=== PATIENT | female | born 1965 | race Caucasian/White ===

== ENCOUNTER → 2018-11-22 15:20 | Outpatient (CLI) | payer OTHER, SELFPAY | PROVIDERS: Visit Provider Physician Assistant | DX: N39.0 Urinary tract infection, site not specified (principal); R31.9 Hematuria, unspecified | CPT/HCPCS: 87077; 87086; 87186 ==

== ENCOUNTER → 2019-07-28 07:43 | Outpatient (CLI) | payer OTHER, SELFPAY ==
--- NOTE | 2019-07-28 | DI.MG.S_ITS ---
BILATERAL DIGITAL SCREENING MAMMOGRAM 3D/2D WITH CAD: 07/28/2019 CLINICAL: Routine screening. Family history of breast cancer. Comparison is made to exams dated: 07/23/2018 mammogram, 05/29/2017 mammogram, and 05/18/2016 mammogram - [facility]. There are scattered fibroglandular elements in both breasts. Current study was also evaluated with a Computer Aided Detection (CAD) system. No significant masses, calcifications, or other findings are seen in either breast. There has been no significant interval change. IMPRESSION: NEGATIVE There is no mammographic evidence of malignancy. A 1 year screening mammogram is recommended. This exam was interpreted at Station ID: [id number]. NOTE: For mammograms, a report in lay terms will be sent to the patient. Approximately 15% of breast malignancies will not be visualized mammographically. In the management of a palpable breast mass, a negative mammogram must not discourage biopsy of a clinically suspicious lesion. Electronically Signed By: Martin huff/leila:07/28/2019 09:05:30 letter sent: Normal Exam ACR BI-RADS Category 1: Negative 3341F
== END ==
PROVIDERS: PCP Nurse Practitioner Family; Referring Provider Nurse Practitioner Family; Visit Provider Nurse Practitioner Family
DX: Z12.31 Encounter for screening mammogram for malignant neoplasm of breast (principal); Z80.3 Family history of malignant neoplasm of breast
CPT/HCPCS: 77063; 77067

== ENCOUNTER → 2019-09-13 08:31 | Outpatient (CLI) | payer OTHER, SELFPAY ==
--- NOTE | 2019-09-13 08:34 | DI.RAD.S_ITS ---
PROCEDURE: XR CHEST 2V INDICATIONS: Cough TECHNIQUE: 2 views of the chest were acquired. COMPARISON: None. FINDINGS: Surgical changes and devices: None. Lungs and pleura: An incomplete inspiratory result is noted, causing a crowded appearance to the lung markings. No focal infiltrates are seen. No pneumothorax or significant pleural effusions are seen. Mediastinum: The cardiac contours are within normal limits. The aorta demonstrates calcification and tortuosity. Bones and chest wall: Age-appropriate bony degenerative changes are seen. No suspicious bony abnormalities. Soft tissues appear unremarkable. IMPRESSION: No acute cardiopulmonary process is seen. No focal infiltrates. Dictated by: Kirit Garrett M.D. on 09/13/2019 at 8:04 Approved by: Kirit Garrett M.D. on 09/13/2019 at 8:05
== END ==
PROVIDERS: PCP Nurse Practitioner Family; Referring Provider Registered Nurse; Visit Provider Registered Nurse
DX: R05 Cough (principal)
CPT/HCPCS: 71046

== ENCOUNTER → 2020-08-10 10:04 | Outpatient (CLI) | payer OTHER, SELFPAY ==
--- NOTE | 2020-08-10 10:05 | DI.MG.S_ITS ---
BILATERAL DIGITAL SCREENING MAMMOGRAM 3D/2D WITH CAD: 08/10/2020 CLINICAL: Routine screening. Family history of breast cancer. Comparison is made to exams dated: 07/28/2019 mammogram - [facility], 07/23/2018 mammogram, and 05/29/2017 mammogram - [facility]. There are scattered fibroglandular elements in both breasts. Current study was also evaluated with a Computer Aided Detection (CAD) system. No significant masses, calcifications, or other findings are seen in either breast. There has been no significant interval change. IMPRESSION: NEGATIVE There is no mammographic evidence of malignancy. A 1 year screening mammogram is recommended. This exam was interpreted at Station ID: [id number]. NOTE: For mammograms, a report in lay terms will be sent to the patient. Approximately 15% of breast malignancies will not be visualized mammographically. In the management of a palpable breast mass, a negative mammogram must not discourage biopsy of a clinically suspicious lesion. Electronically Signed By: Christofer perez/leila:08/10/2020 10:21:53 letter sent: Normal Exam ACR BI-RADS Category 1: Negative 3341F
== END ==
PROVIDERS: PCP Nurse Practitioner Family; Referring Provider Nurse Practitioner Family; Visit Provider Nurse Practitioner Family
DX: Z12.31 Encounter for screening mammogram for malignant neoplasm of breast (principal); Z80.3 Family history of malignant neoplasm of breast
CPT/HCPCS: 77063; 77067

== ENCOUNTER → 2020-08-17 07:27 | Outpatient (CLI) | payer OTHER, SELFPAY ==
[2020-08-17 08:55] LABS: Hematocrit 38.6 % (36-46); Hemoglobin 13.1 g/dL (12.0-16.0); Mean Corpuscular HGB Conc 33.8 % (30-36); Mean Corpuscular Hemoglobin 31.3 PG (26-34); Mean Corpuscular Volume 92.5 fL (80-100); Platelet Count 242 X10^3/uL (150-400); Red Blood Cell Count 4.18 X10^6/uL (4.0-5.2); Red Cell Distribution Width 11.6 % (11.6-14.8); White Blood Cell Count 6.2 X10^3/uL (4.5-11.0)
[2020-08-17 08:55] LABS: Appearance Urine UA SL CLOUDY; Bilirubin Urine UA NEGATIVE (NEGATIVE); Color Urine UA YELLOW; Glucose Urine UA NEGATIVE (Negative); Ketones Urine UA NEGATIVE (NEGATIVE); Leukocyte Esterase Urine UA TRACE (NEGATIVE); Nitrite Urine UA NEGATIVE (Negative); Occult Blood Urine UA 1+ (Negative); Protein Urine UA NEGATIVE (Negative); Specific Gravity Urine UA 1.015 (1.000-1.035); Urobilinogen Urine UA 0.2 E.U./dL (0.2)
[2020-08-17 09:23] LABS: Alanine Aminotransferase 39 IU/L (<35); Albumin 4.2 g/dL (3.5-5.0); Albumin Globulin Ratio 1.4 (1.0-2.8); Alkaline Phosphatase 92 U/L (38-126); Aspartate Aminotransferase 39 IU/L (14-36); BUN Creatinine Ratio 23.9 (6-22); Bilirubin Total 0.4 mg/dL (0.2-1.3); Blood Urea Nitrogen 16 mg/dL (7-17); Calcium 9.7 mg/dL (8.4-10.2); Carbon Dioxide 27 mmol/L (22-32); Chloride 105 mmol/L (98-107); Cholesterol 253 mg/dL (140-199); Estimated Glomerular Filt Rate > 60.0 mL/min (>60); Globulin 3.1 g/dL (1.7-4.1); Glucose 94 mg/dL (70-100); HDL Cholesterol 68 mg/dL (40-60); HEMOLYSIS < 15 (0-50); LDL Cholesterol Calculated 149 mg/dL (<100); Potassium 3.8 mmol/L (3.4-5.1); Sodium 139 mmol/L (137-145); Total Protein 7.3 g/dL (6.3-8.2); Triglycerides 178 mg/dL (35-150)
[2020-08-17 09:31] LABS: Bacteria Urine Many (>30); RBC Urine 0-1/HPF (0-5/HPF); Squamous Epithelial Cell Urine 1-5 /HPF (0-5/HPF); WBC Urine 5-10/HPF (0-5/HPF)
[2020-08-17 10:01] LABS: TSH w/ Reflex to FT4 3.74 uIU/mL (0.47-4.68)
[2020-08-17 10:27] LABS: Folate > 20.0 ng/mL (2.76-20.0); Vitamin B12 780 pg/mL (239-931)
== END ==
PROVIDERS: PCP Nurse Practitioner Family; Referring Provider Nurse Practitioner Family; Visit Provider Nurse Practitioner Family
DX: J45.20 Mild intermittent asthma, uncomplicated (principal); Z00.00 Encounter for general adult medical examination without abnormal findings; R25.1 Tremor, unspecified; Z13.6 Encounter for screening for cardiovascular disorders
CPT/HCPCS: 36415; 80053; 80061; 81001; 82607; 82746; 84443; 85027

== ENCOUNTER → 2020-09-22 14:16 | Outpatient (CLI) | payer OTHER, SELFPAY ==
[2020-09-22] MEDS: COVID-19 VACC #1, MRNA(MOD) 100 MCG/0.5 ML VIAL IM (14:23)
== END ==
PROVIDERS: PCP Nurse Practitioner Family; Visit Provider Internal Medicine
DX: Z23 Encounter for immunization (principal)
CPT/HCPCS: 0011A; 91301

== ENCOUNTER → 2021-01-23 11:50 | Outpatient (CLI) | payer OTHER, SELFPAY ==
--- NOTE | 2021-01-23 11:52 | DI.RAD.S_ITS ---
PROCEDURE: XR TOE LT MIN 2V INDICATIONS: dropped table on toe, pain TECHNIQUE: 3 views of the left toe(s) acquired. COMPARISON: None. FINDINGS: Bones: No fractures or dislocations. No suspicious bony lesions. Age-appropriate bony degenerative changes are seen. Toe alignment abnormalities are seen. Soft tissues: No suspicious soft tissue densities. IMPRESSION: No displaced fractures can be seen on these plain films. Dictated by: Kirit Garrett M.D. on 01/23/2021 at 11:53 Approved by: Kirit Garrett M.D. on 01/23/2021 at 11:54
== END ==
PROVIDERS: PCP Nurse Practitioner Family; Referring Provider Nurse Practitioner Family; Visit Provider Nurse Practitioner Family
DX: S99.922A Unspecified injury of left foot, initial encounter (principal); W20.8XXA Other cause of strike by thrown, projected or falling object, initial encounter
CPT/HCPCS: 73660

== ENCOUNTER → 2021-02-16 15:35 | Outpatient (CLI) | payer OTHER, SELFPAY ==
[2021-02-16 16:05] LABS: COVID19 -Nasal RAPID Negative (Negative)
== END ==
PROVIDERS: PCP Nurse Practitioner Family; Visit Provider Physician Assistant
DX: Z20.822 Contact with and (suspected) exposure to COVID-19 (principal)
CPT/HCPCS: 87635

== ENCOUNTER → 2021-03-03 07:39 | Outpatient (CLI) | payer OTHER, SELFPAY ==
--- NOTE | 2021-03-03 07:42 | DI.RAD.S_ITS ---
PROCEDURE: XR CHEST 2V INDICATIONS: wheezing in RUL TECHNIQUE: 2 views of the chest were acquired. COMPARISON: [facility], CR, XR CHEST 2V, 09/13/2019, 8:31. FINDINGS: Surgical changes and devices: None. Lungs and pleura: Lungs appear clear. No pleural effusions or pneumothorax. Mediastinum: Mediastinal contours are normal. Heart size is normal. Bones and chest wall: No suspicious bony abnormalities. Soft tissues appear unremarkable. IMPRESSION: No acute cardiopulmonary abnormality. Dictated by: Reggie Keith M.D. on 03/03/2021 at 8:30 Approved by: Reggie Keith M.D. on 03/03/2021 at 8:31
== END ==
PROVIDERS: PCP Nurse Practitioner Family; Referring Provider Nurse Practitioner; Visit Provider Nurse Practitioner
DX: R06.2 Wheezing (principal)
CPT/HCPCS: 71046

== ENCOUNTER → 2021-03-20 11:50 | Outpatient (CLI) | payer OTHER, SELFPAY ==
[2021-03-20 12:10] LABS: COVID19 -Nasal RAPID Negative (Negative)
== END ==
PROVIDERS: PCP Nurse Practitioner Family; Referring Provider Physician Assistant; Visit Provider Physician Assistant
DX: Z20.822 Contact with and (suspected) exposure to COVID-19 (principal)
CPT/HCPCS: 87635

== ENCOUNTER → 2021-08-23 10:04 | Outpatient (CLI) | payer OTHER, SELFPAY ==
--- NOTE | 2021-08-23 | DI.MG.S_ITS ---
BILATERAL DIGITAL SCREENING MAMMOGRAM 3D/2D WITH CAD: 08/23/2021 CLINICAL: Routine screening. Family history of breast cancer. Comparison is made to exams dated: 08/10/2020 mammogram, 07/28/[address] - [facility], and 07/23/2018 mammogram - [facility]. There are scattered fibroglandular elements in both breasts. Current study was also evaluated with a Computer Aided Detection (CAD) system. No significant masses, calcifications, or other findings are seen in either breast. There has been no significant interval change. IMPRESSION: NEGATIVE There is no mammographic evidence of malignancy. A 1 year screening mammogram is recommended. This exam was interpreted at Station ID: [id number]. NOTE: For mammograms, a report in lay terms will be sent to the patient. Approximately 15% of breast malignancies will not be visualized mammographically. In the management of a palpable breast mass, a negative mammogram must not discourage biopsy of a clinically suspicious lesion. Electronically Signed By: Bobby randall/leila:08/23/2021 10:58:49 letter sent: Normal Exam ACR BI-RADS Category 1: Negative 3341F
== END ==
PROVIDERS: PCP Family Medicine; Referring Provider Nurse Practitioner Family; Visit Provider Family Medicine
DX: Z12.31 Encounter for screening mammogram for malignant neoplasm of breast (principal); Z80.3 Family history of malignant neoplasm of breast
CPT/HCPCS: 77063; 77067

== ENCOUNTER → 2022-04-23 09:20 | Outpatient (CLI) | payer OTHER, SELFPAY ==
[2022-04-23 12:05] LABS: Influenza A - CEPHEID Flu A NEGATIVE (NEGATIVE); Influenza B - CEPHEID Flu B NEGATIVE (NEGATIVE); Respiratory Syncytial Virus Negative (Negative)
[2022-04-23 12:06] LABS: COVID-19 CEPHEID 4-PLEX PCR Negative (Negative)
== END ==
PROVIDERS: PCP Family Medicine; Visit Provider Physician Assistant
DX: R05.9 Cough, unspecified (principal); J02.9 Acute pharyngitis, unspecified; Z20.822 Contact with and (suspected) exposure to COVID-19
CPT/HCPCS: 0241U; 87070

== ENCOUNTER 2022-05-01 05:52 | Emergency (ER) | payer OTHER, SELFPAY ==
[2022-05-01 06:03] VITALS: BP 149/85; PULSE 79; RESP 16; TEMP 36.6; O2SAT 98; BMI 30.4
--- NOTE | 2022-05-01 06:05 | DI.RAD.S_ITS ---
PROCEDURE: XR FOOT LT MIN 3V INDICATIONS: fall with anterior foot pain, toes ecchymosis TECHNIQUE: 3 views of the foot were acquired. COMPARISON: [facility], CR, XR TOE LT MIN 2V, 05/01/2022, 6:37. FINDINGS: Bones: There is dislocation of the 2nd PIP joint. There may be a minimally displaced fracture at the base of the middle 5th phalanx; however the acuity of this finding is unclear. There is likely a minimally displaced intra-articular fracture at the base of the distal 1st phalanx. Soft tissues: No tibiotalar joint effusion. Achilles tendon appears normal. IMPRESSION: 1. Dislocation of the 2nd digit. This finding is concordant with the overnight interpretation. 2. Probable fracture at the base of the distal 1st phalanx and questionable fracture at the base of the left middle 5th phalanx. These findings were not discussed in the overnight interpretation. Dictated by: Edel Gutiérrez M.D. on 05/01/2022 at 9:01 Approved by: Edel Gutiérrez M.D. on 05/01/2022 at 9:04
--- NOTE | 2022-05-01 06:05 | DI.RAD.S_ITS ---
PROCEDURE: XR KNEE LT 3V INDICATIONS: fall with medial joint line tenderness, mild swelling TECHNIQUE: 3 views of the knee were acquired. COMPARISON: None. FINDINGS: Bones: No fractures or dislocations. No suspicious bony lesions. Soft tissues: No joint effusion. No suspicious soft tissue calcifications. IMPRESSION: No acute radiographic findings. If pain persists, followup imaging in 5-7 days is recommended to exclude occult fracture. Dictated by: Edel Gutiérrez M.D. on 05/01/2022 at 8:58 Approved by: Edel Gutiérrez M.D. on 05/01/2022 at 9:01
--- NOTE | 2022-05-01 06:09 | ED.LOWEXIN ---
HPI - Extremity Injury (Lower) General Chief Complaint: Extremity Injury, Lower Stated Complaint: left foot pain from fall Time Seen by Provider: 05/01/22 06:05 Source: patient Mode of arrival: Ambulatory History of Present Illness HPI Narrative: 57F nonsmoker with noncontributory medical history presents with a chief complaint of a mechanical injury to her left foot last night. She was walking on a slippery floor and lost her balance a bit and jammed her left foot on immovable object. She now has a painful cricket toe on her left foot but denies any numbness or tingling. She has some mild pain on her left knee as well but nothing significant she states. She denies any head neck or back pain. She has no chest pain or shortness of breath. Related Data Previous Rx's Medication Instructions Recorded acetaminophen 120 mg-codeine 12 10 ml PO .HS PRN cough #118 mL 09/27/19 mg/5 mL oral solution epinephrine 0.3 mg/0.3 mL 0.3 mg (0.3 mL) IM ONCE #2 ea 10/01/19 injection, auto-injector (EpiPen 2-León) albuterol sulfate 90 mcg/actuation 2 puff inhalation Q4-6H PRN 02/14/21 aerosol inhaler shortness of breath or wheezing #18 grams fluticasone propionate 44 1 puff inhalation BID #10.6 grams 02/14/21 mcg/actuation HFA aerosol inhaler (Flovent HFA) azithromycin 250 mg tablet See Rx Instructions PO .COMPLEX #6 02/16/21 tabs benzonatate 100 mg capsule 100 mg PO BID PRN cough #30 caps 03/03/21 (Tesnancy Gonzalez) Allergies Allergy/AdvReac Type Severity Reaction Status Date / Time bee venom protein (honey bee) Allergy Severe Huge Verified 04/23/22 09:19 blotchy rashes on thighs Sulfa (Sulfonamide Allergy Mild rash Verified 04/23/22 09:19 Antibiotics) Review of Systems Review of Systems Narrative: GENERAL: Denies chills, fatigue, malaise, fever, sweats. HEENT: Denies sinus pain, ear pain, sore throat, difficulty swallowing, dizziness. RESPIRATORY: Denies dyspnea, cough, wheezing, hemoptysis, sputum. CARDIOVASCULAR: Denies chest pain, palpitations, orthopnea, edema, GASTROINTESTINAL: Denies nausea, vomiting, abdominal pain, diarrhea, constipation, melena. : Denies dysuria, frequency, incontinence, hematuria, urinary retention. MUSCULOSKELETAL: See HPI SKIN: Denies rash, skin lesions, or other NEUROLOGIC: Denies weakness, headache, numbness, change in speech, confusion, seizures, incoordination. PSYCHIATRIC: No concerning psychosocial issues. 12 point review of systems is negative except for those stated above Patient History Medical History Allergies (~1964) Chicken pox (~1969) Essential tremor Family history of breast cancer in mother Family hx of ALS (amyotrophic lateral sclerosis) Ingrown toenail Moderate intermittent asthma (~1964) Stress incontinence Toe injury Viral URI with cough Surgical History Anesthesia History of abdominoplasty (~2004) History of hysterectomy (~2000) History of surgery (~1967) Venous thrombosis of leg (~2001) Family History Father Hyperlipidemia Stroke Mother Cancer Hypertension Brother ALS (amyotrophic lateral sclerosis) Grandmother Broken hip Grandfather History of heart disease Grandmother Pneumonia Social History Smoking Status: Never smoker Smoking Status: Never smoker alcohol intake frequency: a few times a month Substance Use Type: does not use Exam Narrative Exam Narrative: GEN: AOx3 and in mild distress EYES: Pupils are equal, round, and reactive to light and accommodation. Extraoccular muscles are intact bilaterally. There is no subconjunctival hemorrhage or exudate. CHEST: Lungs are clear to auscultation bilaterally and free of wheezes, rales, or rhonchi. Heart rate is regular rhythm, there are no murmurs, clicks, rubs, or gallops. There is no chest wall tenderness. ABD: Abdomen is soft and nontender. There is no guarding or rebound. Bowel sounds are normal in all 4 quadrants. There is no mass or organomegaly. EXT: Left 2nd toe tender to palpate, closed and neurovascularly intact, limited range of motion secondary to mechanical obstruction, high suspicion for dislocation. Minimal tenderness in left knee along the medial joint line, no ligamentous instability, negative Monty's. SKIN: Warm, pink, and dry. No erythema or rash Initial Vital Signs Initial Vital Signs: Vital Signs Temperature 97.8 F 05/01/22 06:03 Pulse Rate 79 05/01/22 06:03 Respiratory Rate 16 05/01/22 06:03 Blood Pressure 149/85 H 05/01/22 06:03 Pulse Oximetry 98 05/01/22 06:03 Oxygen Delivery Method 05/01/22 06:03 Procedures Orthopedic Joint Reduction Joint #1: Side: left Joint Reduction Location: toe Technique used: traction/counter-traction and direct manipulation Post-reduction neuro exam: intact Post-reduction vascular: intact Post Reduction X-Ray Obtained: Yes Post Reduction X-Ray Results: reduced Splint Applied: Yes Orthopedic Splinting/Casting Injury #1: Lower Extremity Injury Location: toe Lower Extremity Immobilizer: post-op shoe Course Orders Ordered: ED Orders 05/01/22 06:05 XR foot LT min 3V Stat XR knee LT 3V Stat Vital Signs Vital signs: Vital Signs - 8 hr 05/01/22 06:03 Temperature 97.8 F Pulse Rate 79 Respiratory Rate 16 Blood Pressure 149/85 H Pulse Oximetry 98 Oxygen Delivery Method Room Air MDM - Extremity Injury (Lower) Imaging Data Extremity x-ray #1: Radiologist's Impression: [address] [address] XRay Report Signed Patient: Celia Escoto MR#: [id number] : 1965 Acct:[id number] Age/Sex: 57 / F Date of Service: 05/01/22 Loc: ED Accession Number: [id number] ?? Procedure: XR foot LT min 3V Ordering Provider: Uli Hartman D.O. PROCEDURE:? XR FOOT LT MIN 3V ? INDICATIONS:? fall with anterior foot pain, toes ecchymosis ? TECHNIQUE:? 3 views of the foot were acquired.? ? COMPARISON:? [facility], [place], XR TOE LT MIN 2V, 05/01/2022, 6:37. ? FINDINGS:? ? Bones:? There is dislocation of the 2nd PIP joint.? There may be a minimally displaced fracture at the base of the middle 5th phalanx; however the acuity of this finding is unclear.? There is? likely a minimally displaced intra-articular fracture at the base of the distal 1st phalanx. ? Soft tissues:? No tibiotalar joint effusion.? Achilles tendon appears normal.? ? ? IMPRESSION:? ? 1. Dislocation of the 2nd digit. ? This finding is concordant with the overnight interpretation. ? 2. Probable fracture at the base of the distal 1st phalanx and questionable fracture at the base of the left middle 5th phalanx.? These findings were not discussed in the overnight interpretation.? ? Dictated by: Edel Gutiérrez M.D. on 05/01/2022 at 9:01 ? ? Approved by: Edel Gutiérrez M.D. on 05/01/2022 at 9:04 ? Extremity x-ray #2: Radiologist's Impression: [address] [address] XRay Report Signed Patient: Celia Escoto MR#: [id number] : 1965 Acct:[id number] Age/Sex: 57 / F Date of Service: 05/01/22 Loc: ED Accession Number: [id number] ?? Procedure: XR toe LT min 2V Ordering Provider: Uli Hartman D.O. PROCEDURE:? XR TOE LT MIN 2V ? INDICATIONS:? post reduction ? TECHNIQUE:? 3 views of the left great toe(s) acquired.? ? COMPARISON:? [facility], , XR TOE LT MIN 2V, 01/23/2021, 12:02. ? FINDINGS:? ? Bones:? There has been successful reduction of the 2nd phalangeal dislocation.? Questionable fracture at the base of the distal 1st phalanx is redemonstrated. ? Soft tissues:? No suspicious soft tissue densities.? ? IMPRESSION:? Successful reduction of the 2nd phalangeal dislocation.? Persistent questionable fracture at the base of the distal left 1st phalanx. ? ? Dictated by: Edel Gutiérrez M.D. on 05/01/2022 at 9:04 ? ? Approved by: Edel Gutiérrez M.D. on 05/01/2022 at 9:05 ? Extremity x-ray #3: Radiologist's Impression: ? Chart Viewer Diagnostics Subcategory All Activity ??:?? All Time ??:?? All Subcategories Filter Laboratory Imaging Microbiology Pathology Blood Bank Tests Cardiovascular Other Specialty DATE TYPE STATUS REF RANGE/AUTHOR Hx 05/01/22 06:34 Toe X-Ray Signed Edel Gutiérrez 05/01/22 06:05 Knee X-Ray Signed Edel Gutiérrez 05/01/22 06:05 Foot X-Ray Signed Edel Gutiérrez 08/23/21 00:00 Mammogram Screening Signed Bobby Lazaro 03/03/21 07:42 Chest X-Ray Signed Reggie Keith 01/23/21 11:52 Toe X-Ray Signed [place],Kirit 08/10/20 10:05 Mammogram Screening Signed Christofer Levi 09/13/19 08:34 Chest X-Ray Signed Kirit Garrett 07/28/19 00:00 Mammogram Screening Signed Martin Willett Kellie ED 57, F?1965 MRN#? [id number] [facility],?[facility]??? 172.72cm 90.718kg BMI: 30.4kg/m? Extremity Injury, Lower Acc#? [id number] Resus Status Not Ordered No Hx Avail Special Indicators No Data to Display Home Meds Not Confirmed Prescription Monitoring Program Total 0 MME/Day Incomplete MEDICATIONS (INSTRUCTIONS) LAST TAKEN Active ??acetaminophen 120 mg-codeine 12 mg/5 mL oral solution ??10 mlPO.HSPRNcough#118 mL 0 MME/Day ??albuterol sulfate 90 mcg/actuation aerosol inhaler ??2 puffinhalationQ4-6HPRNshortness of breath or wheezing#18 grams ??azithromycin 250 mg tablet ??See Rx Instructions ??benzonatate 100 mg capsule ??100 mgPOBIDPRNcough#30 caps *Product no longer available ??epinephrine 0.3 mg/0.3 mL injection, auto-injector ??0.3 mg(0.3 mL)IMONCE#2 ea ??fluticasone propionate 44 mcg/actuation HFA aerosol inhaler ??1 puffinhalationBID#10.6 grams Allergies bee venom protein (honey bee) Huge blotchy rashes on thighs Sulfa (Sulfonamide Antibiotics) rash Problems ? ONSET Closed dislocation of toe Contusion of knee, left Viral URI with cough Asthma exacerbation Bronchitis Wheezing Ingrown toenail Toe injury Allergies ~1964 Family hx of ALS (amyotrophic lateral sclerosis) Family history of breast cancer in mother Stress incontinence Essential tremor Moderate intermittent asthma ~1964 Acute asthma exacerbation Vital Signs 05/01/22 06:03 BP 149/85?H Pulse 79? Resp 16? Temp 97.8 F? O2 Sat 98? Delivery Room Air? Diagnostics Reports Celia Escoto??57??F??1965 ? Allergy/Adv: bee venom protein (honey bee), Sulfa (Sulfonamide Antibiotics) (More??) Close Toe X-Ray (Signed) Edel Gutiérrez - 05/01/22 Knee X-Ray (Signed) Edel Gutiérrez - 05/01/22 Foot X-Ray (Signed) Kavya Gutiérrezah - 05/01/22 Mammogram Screening (Signed) Bobby Lazaro - 08/23/21 Chest X-Ray (Signed) Reggie Keith - 03/03/21 Toe X-Ray (Signed) Kirit Garrett - 01/23/21 Mammogram Screening (Signed) Christofer Levi - 08/10/20 Chest X-Ray (Signed) Kirit Garrett - 09/13/19 Mammogram Screening (Signed) Martin Willett - 07/28/19 [place] [address] XRay Report Signed Patient: Celia Escoto MR#: [id number] : 1965 Acct:[id number] Age/Sex: 57 / F Date of Service: 05/01/22 Loc: ED Accession Number: [id number] ?? Procedure: XR knee LT 3V Ordering Provider: Uli Hartman D.O. PROCEDURE:? XR KNEE LT 3V ? INDICATIONS:? fall with medial joint line tenderness, mild swelling ? TECHNIQUE:? 3 views of the knee were acquired.? ? COMPARISON:? None. ? FINDINGS:? ? Bones:? No fractures or dislocations.? No suspicious bony lesions.? ? Soft tissues:? No joint effusion.? No suspicious soft tissue calcifications.? ? ? IMPRESSION:? No acute radiographic findings. If pain persists, followup imaging in 5-7 days is recommended to exclude occult fracture. ? ? Dictated by: Edel Gutiérrez M.D. on 05/01/2022 at 8:58 ? ? Approved by: Edel Gutiérrez M.D. on 05/01/2022 at 9:01 ? Discharge Plan Departure Patient Disposition: Home Clinical Impression: Contusion of knee, left, Injury of toe Closed dislocation of toe Qualifiers: Encounter type: initial encounter Laterality: left Qualified Code(s): S93.105A - Unspecified dislocation of left toe(s), initial encounter Activity Restrictions/Additional Instructions: *You have been diagnosed with [toe dislocation and knee contusion] *What to do: *Please continue to take your regular medications as directed. *Please follow up with your primary care provider in 2-3 days, call for an appointment. Let them know you were seen in the Emergency Department and that we ask that you be seen in follow up. We will electronically transmit a record of today's note if your PCP is in our system *Return to Emergency Department if you should have any new, worsening or concerning symptoms, such as [fever greater than 101 F, shaking chills, worsening pain, persistent vomiting or other bothersome symptoms] Prescriptions: No Action azithromycin 250 mg tablet See Rx Instructions PO .COMPLEX Qty: 6 0RF Rx Instructions: take 500 mg today (day 1), then 250 mg for 4 days (days 2-5) PO benzonatate [Tessalon Perles] 100 mg capsule 100 mg PO BID PRN (Reason: cough) Qty: 30 0RF acetaminophen-codeine 120-12 mg/5 mL solution 10 ml PO .HS PRN (Reason: cough) Qty: 118 0RF albuterol sulfate 90 mcg/actuation HFA aerosol inhaler 2 puff INHALATION Q4-6H PRN (Reason: shortness of breath or wheezing) Qty: 18 1RF Rx Instructions: PT DUE FOR APPT W/PCP. PLEASE CALL TO SCHEDULE APPT. THANKS 02/14/21 Flovent HFA 44 mcg/actuation HFA aerosol inhaler 1 puff INHALATION BID Qty: 10.6 1RF Rx Instructions: administer with spacer// PT DUE FOR APPT W/PCP. PLEASE CALL TO SCHEDULE APPT. THANKS 02/14/21 epinephrine [EpiPen 2-León] 0.3 mg/0.3 mL auto-injector 0.3 mg IM ONCE Qty: 2 0RF Rx Instructions: as a single dose Referrals: Faustina Covington MD [Primary Care Provider] - Visit Report Forms: Patient Portal/API
--- NOTE | 2022-05-01 06:11 | PC.NURSE ---
Xray at bedside
--- NOTE | 2022-05-01 06:33 | PC.NURSE ---
MD at bedside to reduce toe
--- NOTE | 2022-05-01 06:34 | DI.RAD.S_ITS ---
PROCEDURE: XR TOE LT MIN 2V INDICATIONS: post reduction TECHNIQUE: 3 views of the left great toe(s) acquired. COMPARISON: [facility], CR, XR TOE LT MIN 2V, 01/23/2021, 12:02. FINDINGS: Bones: There has been successful reduction of the 2nd phalangeal dislocation. Questionable fracture at the base of the distal 1st phalanx is redemonstrated. Soft tissues: No suspicious soft tissue densities. IMPRESSION: Successful reduction of the 2nd phalangeal dislocation. Persistent questionable fracture at the base of the distal left 1st phalanx. Dictated by: Edel Gutiérrez M.D. on 05/01/2022 at 9:04 Approved by: Edel Gutiérrez M.D. on 05/01/2022 at 9:05
--- NOTE | 2022-05-01 06:43 | PC.NURSE ---
xray at bedside for post reduction
--- NOTE | 2022-05-01 07:00 | PC.NURSE ---
Applied post-op show to the left foot - tolerated well
== END 2022-05-01 07:14 | disposition home or self-care (01) ==
PROVIDERS: Emergency Provider Emergency Medicine; PCP Family Medicine
DX: S93.105A Unspecified dislocation of left toe(s), initial encounter (principal); S80.02XA Contusion of left knee, initial encounter; W01.0XXA Fall on same level from slipping, tripping and stumbling without subsequent striking against object, initial encounter
CPT/HCPCS: 28660; 73562; 73630; 73660; 99281; 99284

== ENCOUNTER → 2022-09-26 08:32 | Outpatient (CLI) | payer OTHER, SELFPAY ==
--- NOTE | 2022-09-26 | DI.MG.S_ITS ---
BILATERAL DIGITAL SCREENING MAMMOGRAM 3D/2D WITH CAD: 09/26/2022 CLINICAL: Routine screening. Family history of breast cancer. Comparison is made to exams dated: 08/23/2021 mammogram, 08/10/2020 mammogram, 07/28/2019 mammogram - [facility], and 07/23/2018 mammogram - [facility][1]. There are scattered areas of fibroglandular density in both breasts (category b / 25%-50% glandular tissue). Current study was also evaluated with a Computer Aided Detection (CAD) system. No significant masses, calcifications, or other findings are seen in either breast. There has been no significant interval change. IMPRESSION: NEGATIVE There is no mammographic evidence of malignancy. A 1 year screening mammogram is recommended. Based on the Tyrer Cuzick model (a risk assessment model) the patient's lifetime risk is 13.3% and her 10 year risk is 5.2%. According to the ACR, ACS, and NCCN guidelines, an annual breast MRI exam along with mammogram is recommended if the patient's lifetime risk is 20% or greater. This exam was interpreted at Station ID: [id number]. NOTE: For mammograms, a report in lay terms will be sent to the patient. Approximately 15% of breast malignancies will not be visualized mammographically. In the management of a palpable breast mass, a negative mammogram must not discourage biopsy of a clinically suspicious lesion. Electronically Signed By: Reggie kilgore/leila:09/26/2022 09:28:33 copy to: DWAYNE BRUNSON letter sent: Normal Exam ACR BI-RADS Category 1: Negative 3341F
== END ==
PROVIDERS: PCP Family Medicine; Referring Provider Family Medicine; Visit Provider Family Medicine
DX: Z12.31 Encounter for screening mammogram for malignant neoplasm of breast (principal); Z80.3 Family history of malignant neoplasm of breast
CPT/HCPCS: 77063; 77067

== ENCOUNTER → 2023-09-28 08:25 | Outpatient (CLI) | payer OTHER, SELFPAY ==
--- NOTE | 2023-09-28 08:26 | DI.MG.S_ITS ---
BILATERAL DIGITAL SCREENING MAMMOGRAM 3D/2D WITH CAD: 09/28/2023 CLINICAL: Routine screening. Family history of breast cancer. Comparison is made to exams dated: 09/26/2022 mammogram, 08/23/2021 mammogram, 08/10/2020 mammogram, and 07/28/2019 mammogram - [facility]. There are scattered areas of fibroglandular density in both breasts (category b / 25%-50% glandular tissue). Current study was also evaluated with a Computer Aided Detection (CAD) system. No significant masses, calcifications, or other findings are seen in either breast. There has been no significant interval change. IMPRESSION: NEGATIVE There is no mammographic evidence of malignancy. A 1 year screening mammogram is recommended. Based on the Tyrer Cuzick model (a risk assessment model) the patient's lifetime risk is 13.1% and her 10 year risk is 5.3%. According to the ACR, ACS, and NCCN guidelines, an annual breast MRI exam along with mammogram is recommended if the patient's lifetime risk is 20% or greater. This exam was interpreted at Station ID: [id number]. NOTE: For mammograms, a report in lay terms will be sent to the patient. Approximately 15% of breast malignancies will not be visualized mammographically. In the management of a palpable breast mass, a negative mammogram must not discourage biopsy of a clinically suspicious lesion. Electronically Signed By: Reggie kilgore/leila:09/28/2023 11:38:00 letter sent: Normal Exam ACR BI-RADS Category 1: Negative [id number]
== END ==
PROVIDERS: PCP Family Medicine; Referring Provider Family Medicine; Visit Provider Family Medicine
DX: Z12.31 Encounter for screening mammogram for malignant neoplasm of breast (principal); Z80.3 Family history of malignant neoplasm of breast; R92.323 Mammographic fibroglandular density, bilateral breasts
CPT/HCPCS: 77063; 77067

== ENCOUNTER → 2024-03-18 11:15 | Outpatient (CLI) | payer BC, SELFPAY ==
--- NOTE | 2024-03-18 | DI.RAD.S_ITS ---
PROCEDURE: XR HIP W PEL IF DONE RT 2V INDICATIONS: RIGHT HIP PAIN TECHNIQUE: 2 view(s) of the hip acquired. COMPARISON: None. FINDINGS: Bones: There are no osseous abnormalities. SI and hip joints: Normal in width and alignment without arthritic change Soft tissues: No soft tissue swelling, calcification or mass. IMPRESSION: Normal pelvis. Moderate L5-S1 degenerative facet disease noted Dictated by: Steffen Hall M.D. on 03/19/2024 at 15:36 Approved by: Steffen Hall M.D. on 03/19/2024 at 15:36
== END ==
PROVIDERS: PCP Family Medicine; Referring Provider Family Medicine; Visit Provider Family Medicine
DX: M47.817 Spondylosis without myelopathy or radiculopathy, lumbosacral region (principal); M25.551 Pain in right hip
CPT/HCPCS: 73502

== ENCOUNTER → 2024-03-24 12:23 | Outpatient (CLI) | payer BC, SELFPAY ==
--- NOTE | 2024-03-24 12:27 | DI.RAD.S_ITS ---
PROCEDURE: XR CERVICAL SPINE 2V OR 3V INDICATIONS: BACK PAIN TECHNIQUE: Three views of the cervical spine were acquired. COMPARISON: None. FINDINGS: Cervical spine curvature and alignment: Normal. Bones: There are no osseous abnormalities. Disc spaces: Mild C5-6 degenerative disc disease appreciated. There is mild degenerative facet disease C4-5 C5-6 C6-7. Soft tissues: No soft tissue swelling, calcification or mass. IMPRESSION: Mild degeneration Dictated by: Steffen Hall M.D. on 03/25/2024 at 9:54 Approved by: Steffen Hall M.D. on 03/25/2024 at 9:55
--- NOTE | 2024-03-24 12:27 | DI.RAD.S_ITS ---
PROCEDURE: XR LUMBAR SPINE 2-3V INDICATIONS: BACK PAIN TECHNIQUE: 3 views of the lumbar spine were acquired. COMPARISON: None. FINDINGS: Lumbar spine curvature and alignment: Normal. L5 is partially sacralized Bones: There are no osseous abnormalities. Disc spaces: Mild L4-5 and L5-S1 degenerative disc disease appreciated. There is mild L4-5 and L5-S1 degenerative facet disease Soft tissues: No soft tissue swelling, calcification or mass. IMPRESSION: Mild degeneration. Partial L5 sacralization Dictated by: Steffen Hall M.D. on 03/25/2024 at 10:01 Approved by: Steffen Hall M.D. on 03/25/2024 at 10:03
== END ==
LOC: RAD 12:25
PROVIDERS: PCP Family Medicine; Referring Provider Family Medicine; Visit Provider Family Medicine
DX: M47.812 Spondylosis without myelopathy or radiculopathy, cervical region (principal); M50.322 Other cervical disc degeneration at C5-C6 level; M47.817 Spondylosis without myelopathy or radiculopathy, lumbosacral region; M47.816 Spondylosis without myelopathy or radiculopathy, lumbar region; M51.369 Other intervertebral disc degeneration, lumbar region without mention of lumbar back pain or lower extremity pain; M51.379 Other intervertebral disc degeneration, lumbosacral region without mention of lumbar back pain or lower extremity pain; M43.27 Fusion of spine, lumbosacral region
CPT/HCPCS: 72040; 72100

== ENCOUNTER → 2024-11-03 07:37 | Outpatient (CLI) | payer BC, SELFPAY ==
--- NOTE | 2024-11-03 07:39 | DI.MG.S_ITS ---
MM screening mammo BI: 11/03/2024. BI-RADS: 1 CLINICAL: 59-year old female for bilateral screening mammogram. Tyrer-Cuzick lifetime risk of 11.1%. Current reported family history of breast cancer: mother. PRIOR EXAMS 09/28/2023, 09/26/2022, 08/23/2021, 08/10/2020, 07/28/2019. MAMMOGRAPHY TECHNIQUE: 2D and 3D (tomosynthesis) digital mammographic views obtained, with additional images as needed for full coverage. Current study was also evaluated with a Computer Aided Detection (CAD) system. DENSITY A. The breasts are almost entirely fatty. MAMMOGRAPHY FINDINGS Bilateral: No suspicious mass, asymmetry, microcalcification, or other abnormality seen. No significant change from comparison. IMPRESSION: * No evidence of malignancy. RECOMMENDATIONS Bilateral * Annual screening mammography. OVERALL ASSESSMENT CATEGORY BI-RADS-1: Negative. The [employer] recommends annual screening mammography beginning at age 40 for women with average risk of breast cancer. ELECTRONICALLY SIGNED: Stefany Cobian M.D. on 11/03/2024 at 04:13:09 PM PT Interpreting Station ID: [id number]
== END ==
LOC: MAMMO 07:38
PROVIDERS: PCP Family Medicine; Referring Provider Family Medicine; Visit Provider Family Medicine
DX: Z12.31 Encounter for screening mammogram for malignant neoplasm of breast (principal); Z80.3 Family history of malignant neoplasm of breast; R92.313 Mammographic fatty tissue density, bilateral breasts
CPT/HCPCS: 77063; 77067